=== PATIENT | male | born 1980 | race Caucasian/White ===

== ENCOUNTER 2022-07-11 21:09 | Emergency (ER) | payer BC ==
[2022-07-11 21:28] VITALS: BP 161/108; PULSE 97
[2022-07-11 22:33] VITALS: O2SAT 97
--- NOTE | 2022-07-11 22:52 | ERPHSYRPT ---
- History of Present Illness Time Seen by Provider: 07/11/22 22:49 Source: patient Patient Subjective Stated Complaint: dizziness off and on x2 days Triage Nursing Assessment: pt ambulated into ER without diff. Pt c/o some lightheadedness x2 days. Pt is out of his b/p meds and has been out over 1 month. Pt denies headache. Pt denies any blurred vision. Physician History: Patient is a 41-year-old male BMI of 63 with history of blood pressure medication noncompliance smoker presents with an elevated blood pressure in triage for evaluation of intermittent dizziness and lightheadedness for 2 days. There is emergency department. Orders entered putting CT head.. Patient refused testing before speaking to the doctor. Dr. Stevens not immediately available. Dr. Stevens entered room to speak to patient. Patient states he did not want to wait for any testing. Patient stated that he wanted his discharge paperwork to be released. Patient refused work-up. Patient left AGAINST MEDICAL ADVICE Patient is of sound mind. Patient is appropriate to make informed and independent medical decisions. Patient understands that leaving AGAINST MEDICAL ADVICE can result in delayed diagnosis, increased risk of morbidity, mortality, short and long-term disability including . In spite of these risks, patient has decided to leave AGAINST MEDICAL ADVICE. Patient understands that he/she may return to our ED at any point if he or she reconsiders. Patient agrees to follow-up with his or her primary care doctor within 48 hours for reevaluation. Patient voices no other complaints or concerns at this time. We will release patient AGAINST MEDICAL ADVICE per their request. Timing/Duration: day(s) Severity: moderate Associated Symptoms: No nausea, No headaches Allergies/Adverse Reactions: No Known Drug Allergies Allergy (Unverified 07/11/22 21:34) Home Medications: No Reportable Medications [No Reported Medications] 07/11/22 [History] Hx Tetanus, Diphtheria Vaccination/Date Given: No Hx Influenza Vaccination/Date Given: No Hx Pneumococcal Vaccination/Date Given: No Immunizations Up to Date: No Travel Risk - International Travel Have you traveled outside of the country in past 3 weeks: No - Coronavirus Screening Are you exhibiting any of the following symptoms?: No Close contact with a COVID-19 positive Pt in past 14-21 Days: No - Vaccine Status Have you recieved a Covid-19 vaccination: No - Past Medical History Pertinent Past Medical History: Yes Neurological History: No Pertinent History ENT History: No Pertinent History Cardiac History: Hypertension Respiratory History: No Pertinent History Endocrine Medical History: No Pertinent History Musculoskeletal History: Fractures GI Medical History: No Pertinent History History: No Pertinent History Psycho-Social History: No Pertinent History Male Reproductive Disorders: No Pertinent History Other Medical History: fx left foot - Past Surgical History Past Surgical History: No - Social History Smoking Status: Current every day smoker How long have you smoked: 20 yrs Exposure to second hand smoke: Yes Drug Use: none Patient Lives Alone: No - Nursing Vital Signs Nursing Vital Signs: Initial Vital Signs Temperature 97.1 F 07/11/22 21:25 Pulse Rate 97 H 07/11/22 21:25 Respiratory Rate 24 07/11/22 21:25 Blood Pressure 161/108 07/11/22 21:25 O2 Sat by Pulse Oximetry 98 07/11/22 21:25 Pain Scale Pain Intensity 0 - Physical Exam SpO2: 97 Ordered Tests: Active Orders 24 hr Category Date Time Status Company Doctor STAT Care 07/11/22 22:05 Active EKG-ER Only STAT Care 07/11/22 22:05 Active IV Insertion STAT Care 07/11/22 22:05 Active Pulse Oximetry (ED) STAT Care 07/11/22 22:05 Active HEAD WITHOUT CONTRAST [CT] Stat Exams 07/11/22 22:06 Ordered CBC W DIFF Stat Lab 07/11/22 22:05 Ordered CMP Stat Lab 07/11/22 22:05 Ordered TROPONIN Q4H Lab 07/11/22 22:15 Ordered TROPONIN Q4H Lab 07/12/22 02:15 Ordered TROPONIN Q4H Lab 07/12/22 06:15 Ordered UA W/RFX UR CULTURE Stat Lab 07/11/22 22:05 Ordered - Progress Progress: unchanged Progress Note: Patient left the emergency department before a physical exam can be completed. Patient left AGAINST MEDICAL ADVICE. Patient is of sound mind. Patient is appropriate to make informed and independent medical decisions. Patient understands that leaving AGAINST MEDICAL ADVICE can result in delayed diagnosis, increased risk of morbidity, mortality, short and long-term disability including . In spite of these risks, patient has decided to leave AGAINST MEDICAL ADVICE. Patient understands that he may return to our ED at any point if he reconsiders. Patient agrees to follow-up with his or her primary care doctor within 48 hours for reevaluation. Patient voices no other complaints or concerns at this time. We will release patient AGAINST MEDICAL ADVICE per their request. 07/11/22 22:53 - Departure Departure Disposition: AMA Clinical Impression: Dizziness, Non compliance w medication regimen, Smoker Condition: Stable Critical Care Time: No Referrals: DOCTOR,NO FAMILY [Primary Care Provider] - Follow up/PCP as directed KIM ARBOLEDA [ACTIVE STAFF] - Follow up/PCP as directed Additional Instructions: Patient is of sound mind. Patient is appropriate to make informed and inde pendent medical decisions. Patient understands that leaving AGAINST MEDICAL ADVICE can result in delayed diagnosis, increased risk of morbidity, mortality, short and long-term disability including . In spite of these risks, patient has decided to leave AGAINST MEDICAL ADVICE. Patient understands that he/she may return to our ED at any point if he or she reconsiders. Patient agrees to follow-up with his or her primary care doctor within 48 hours for reevaluation. Patient voices no other complaints or concerns at this time. We will release patient AGAINST MEDICAL ADVICE per their request. Discharge/Care Plan
== END 2022-07-11 22:49 | disposition left against medical advice (07) ==
LOC: ED 21:09
DX: R42 Dizziness and giddiness (principal); Z91.14 Patient's other noncompliance with medication regimen; Z72.0 Tobacco use; I10 Essential (primary) hypertension; Z28.310 Unvaccinated for COVID-19
CPT/HCPCS: 94760; 99281